=== PATIENT | female | born 1950 | race Two or more races ===

== ENCOUNTER 2016-11-04 01:08 | Emergency (ER) | payer OTHER, MEDICAID ==
[~2016-11-04] VITALS: Ht 152.4 cm; Wt 140.6 kg
[2016-11-04 01:41] LABS: Basophils # (auto) 0 uL; Basophils % (auto) 0.4 % (0.0-2.0); Eosinophils # (auto) 0.3 uL; Eosinophils % (auto) 5.5 % (0.0-7.0); Hematocrit 41.8 % (36.0-46.0); Lymphocytes # (auto) 2.1 uL; Lymphocytes % (auto) 33.6 % (10.0-50.0); Mean Corpuscular Hemoglobin 30.5 pg (28.0-32.0); Mean Corpuscular Hgb Conc. 33.5 g/dL (32.0-36.0); Mean Platelet Volume 10.7 fL (7.4-10.4); Monocytes # (auto) 0.5 uL; Monocytes % (auto) 7.9 % (0.0-12.0); Neutrophils # (auto) 3.2 uL; Neutrophils % (auto) 52.6 % (37.0-80.0); Platelet Count (auto) 265 10^3/uL (140-450); Red Cell Distribution Width 14.2 % (11.6-16.0); SUSPECT VIEW TRANSMISSION; White Blood Cell 6.2 10^3/uL (4.4-10.8)
[2016-11-04 01:57] LABS: INR 1.04 (0.9-1.15); Partial Thromboplastin Time 32.2 sec (22.64-33.71); Prothrombin Time 10.7 sec (9.37-12.3)
[2016-11-04 02:13] LABS: Albumin 3.6 g/dL (3.4-5.0); Amylase 35 U/L (25-115); Anion Gap 7 (5-15); Aspartate Aminotransferase 37 U/L (15-37); BUN/Creatinine Ratio 21.8; Blood Urea Nitrogen 17 mg/dL (7-18); Calcium 9.3 mg/dL (8.5-10.1); Carbon Dioxide 26 mmol/L (21-32); Chloride 105 mmol/L (98-107); GFR African American 95 mL/min; GFR Non-African American 78 mL/min; Glucose 126 mg/dL (74-106); Magnesium 2.2 mg/dL (1.6-2.6); Potassium 4.5 mmol/L (3.5-5.1); Sodium 138 mmol/L (136-145)
[2016-11-04 02:18] LABS: Alkaline Phosphatase 99 U/L (45-117); Bilirubin, Total 0.6 mg/dL (0.2-1.0); Total Protein 7.9 g/dL (6.4-8.2)
[2016-11-04 02:35] LABS: Urine RBC None Seen /hpf (0 - 4)
[2016-11-04 02:52] LABS: Urine Bilirubin Negative (Negative); Urine Blood Negative /uL (Negative); Urine Ca Oxalate Crystal FEW (None Seen); Urine Color Yellow (Yellow); Urine Glucose Normal (Normal); Urine Ketone Negative (Negative); Urine Nitrite Negative (Negative); Urine Squamous Epithelial Cell FEW /hpf (<5); Urine Urobilinogen Normal (Negative)
[2016-11-04] MEDS ORDERED: KETOROLAC TROMETH 30 MG/ML 1ML VIAL IV ONE (08:00)
[2016-11-04] MEDS ORDERED: METOCLOPRAMIDE HCL 5MG/ml INJ 2ml VIAL IV ONE (08:00)
[2016-11-04 10:32] VITALS: BP 135/55
== END 2016-11-04 10:52 | disposition home or self-care (01) ==
LOC: ER 01:08
DX: R10.12 Left upper quadrant pain (principal); K59.8 Other specified functional intestinal disorders; E66.01 Morbid (severe) obesity due to excess calories; Z68.44 Body mass index [BMI] 60.0-69.9, adult; E11.22 Type 2 diabetes mellitus with diabetic chronic kidney disease; I12.9 Hypertensive chronic kidney disease with stage 1 through stage 4 chronic kidney disease, or unspecified chronic kidney disease; N18.9 Chronic kidney disease, unspecified; E07.9 Disorder of thyroid, unspecified
CPT/HCPCS: 36415; 80053; 81001; 82150; 83690; 83735; 84484; 85025; 85610; 85730; 93005; 96374; 96375; 99285; J1885; J2765

== ENCOUNTER 2018-06-18 10:58 | Observation (INO) | payer OTHER, MEDICAID ==
[~2018-06-18] VITALS: Ht 152.4 cm; Wt 132.4 kg
[2018-06-18 11:29] LABS: Basophils # (auto) 0 uL; Basophils % (auto) 0.6 % (0.0-2.0); Eosinophils # (auto) 0.2 uL; Eosinophils % (auto) 2.6 % (0.0-7.0); Hematocrit 40.8 % (36.0-46.0); Hemoglobin 13.4 g/dL (12.2-16.2); Lymphocytes # (auto) 1.7 uL; Lymphocytes % (auto) 25.2 % (10.0-50.0); Mean Corpuscular Hemoglobin 28.3 pg (28.0-32.0); Mean Corpuscular Hgb Conc. 32.8 g/dL (32.0-36.0); Mean Corpuscular Volume 86.1 fL (80.0-100.0); Monocytes # (auto) 0.6 uL; Monocytes % (auto) 8.2 % (0.0-12.0); Neutrophils # (auto) 4.3 uL; Neutrophils % (auto) 63.4 % (37.0-80.0); Nucleated Red Blood Cells % 0.1 %; Platelet Count (auto) 244 10^3/uL (140-450); Red Blood Cells 4.74 10^6/uL (4.0-5.20); Red Cell Distribution Width 14.5 % (11.8-14.3); White Blood Cell 6.7 10^3/uL (4.4-10.8)
[2018-06-18 11:45] LABS: Albumin 3.9 g/dL (3.4-5.0); Calcium 10.1 mg/dL (8.5-10.1); Potassium 4.1 mmol/L (3.5-5.1)
[2018-06-18 11:48] LABS: BUN/Creatinine Ratio 25.4; Bilirubin, Total 0.6 mg/dL (0.2-1.0); Total Protein 8.5 g/dL (6.4-8.2)
[2018-06-18 11:53] LABS: Magnesium 2.2 mg/dL (1.6-2.6)
[2018-06-18 12:14] LABS: Urine Bacteria NONE SEEN /hpf (None Seen); Urine Blood Negative /uL (Negative); Urine Mucus FEW (None Seen); Urine Specific Gravity 1.023 (1.001-1.035); Urine WBC 1 /hpf (0 - 5)
[2018-06-18 13:46] LABS: INR 0.99 (0.9-1.15); Partial Thromboplastin Time 37.8 sec (23.78-33.04); Prothrombin Time 10.6 sec (9.27-12.13)
[2018-06-18] MEDS: cefTRIAXone 1GM/10ml IVPUSH 10 ML IV ONE (16:14)
[2018-06-18 17:51] VITALS: BP 171/92
== END 2018-06-18 17:52 | disposition home or self-care (01) | DRG 149 ==
LOC: ER 10:58 → OVERFLOW 10:59 → ER 17:51
PROVIDERS: ADMIT Family Medicine; ATTEND Family Medicine
DX: R42 Dizziness and giddiness (principal); N39.0 Urinary tract infection, site not specified; I10 Essential (primary) hypertension; E11.9 Type 2 diabetes mellitus without complications; E03.9 Hypothyroidism, unspecified; Z90.710 Acquired absence of both cervix and uterus
CPT/HCPCS: 36415; 71045; 80053; 81001; 83735; 84484; 85025; 85610; 85730; 93005; 96374; 99285; G0378; J0696

== ENCOUNTER 2019-09-05 15:41 | Emergency (ER) | payer OTHER, MEDICAID ==
[~2019-09-05] VITALS: Ht 152.4 cm; Wt 128.8 kg
[2019-09-05 17:57] LABS: Basophils # (auto) 0.1 uL; Basophils % (auto) 0.5 % (0.0-2.0); Eosinophils # (auto) 0.1 uL; Hematocrit 42.4 % (36.0-46.0); Hemoglobin 14.1 g/dL (12.2-16.2); Lymphocytes # (auto) 1.6 uL; Mean Corpuscular Hemoglobin 28.7 pg (28.0-32.0); Mean Corpuscular Hgb Conc. 33.2 g/dL (32.0-36.0); Mean Corpuscular Volume 86.4 fL (80.0-100.0); Monocytes # (auto) 0.9 uL; Monocytes % (auto) 8.9 % (0.0-12.0); Neutrophils # (auto) 7.8 uL; Neutrophils % (auto) 74.6 % (37.0-80.0); Platelet Count (auto) 270 10^3/uL (140-450); White Blood Cell 10.4 10^3/uL (4.4-10.8)
[2019-09-05 18:17] LABS: Albumin 3.8 g/dL (3.4-5.0); BUN/Creatinine Ratio 21.1; Calcium 10.5 mg/dL (8.5-10.1); Potassium 3.8 mmol/L (3.5-5.1)
[2019-09-05 18:20] LABS: Bilirubin, Total 0.8 mg/dL (0.2-1.0); Total Protein 8.6 g/dL (6.4-8.2)
[2019-09-05 19:25] VITALS: BP 188/83
== END 2019-09-05 19:26 | disposition home or self-care (01) ==
LOC: ER 15:48
DX: J02.8 Acute pharyngitis due to other specified organisms (principal); B96.89 Other specified bacterial agents as the cause of diseases classified elsewhere; E11.9 Type 2 diabetes mellitus without complications; I10 Essential (primary) hypertension; Z90.710 Acquired absence of both cervix and uterus
CPT/HCPCS: 36415; 71046; 80053; 83880; 85025

== ENCOUNTER 2020-06-15 14:53 | Emergency (ER) | payer OTHER, MEDICAID ==
[~2020-06-15] VITALS: Ht 152.4 cm; Wt 131.5 kg
[2020-06-15 15:00] VITALS: BP 190/86
[2020-06-15 15:44] LABS: Urine Bacteria FEW /hpf (None Seen); Urine Blood Negative /uL (Negative); Urine Specific Gravity 1.016 (1.001-1.035); Urine WBC 1 /hpf (0 - 5)
== END 2020-06-15 17:36 | disposition left against medical advice (07) ==
LOC: ER 14:53
DX: R03.0 Elevated blood-pressure reading, without diagnosis of hypertension (principal); Z53.21 Procedure and treatment not carried out due to patient leaving prior to being seen by health care provider
CPT/HCPCS: 81001; 93005

== ENCOUNTER 2021-12-04 08:11 | Inpatient (IN) | payer OTHER, MEDICAID ==
[~2021-12-04] VITALS: Ht 12.7 cm; Wt 134.3 kg
[2021-12-04 08:41] LABS: Basophils # (auto) 0.1 10 ^3/uL (0-0.2); Basophils % (auto) 0.8 % (0.0-2.0); Eosinophils # (auto) 0.2 10 ^3/uL (0-0.8); Eosinophils % (auto) 2.6 % (0.0-7.0); Hematocrit 41.3 % (36.0-46.0); Hemoglobin 13.9 g/dL (12.2-16.2); Lymphocytes # (auto) 1.6 10 ^3/uL (0.4-5.4); Mean Corpuscular Hemoglobin 30.4 pg (28.0-32.0); Mean Corpuscular Hgb Conc. 33.7 g/dL (32.0-36.0); Mean Corpuscular Volume 90.2 fL (80.0-100.0); Monocytes # (auto) 0.5 10 ^3/uL (0-1.3); Neutrophils # (auto) 4.3 10 ^3/uL (1.6-8.6); Neutrophils % (auto) 64.6 % (37.0-80.0); Nucleated Red Blood Cells % 0.1 %; Red Blood Cells 4.59 10^6/uL (4.0-5.20); Red Cell Distribution Width 14.5 % (11.8-14.3); White Blood Cell 6.6 10^3/uL (4.4-10.8)
[2021-12-04] MEDS ORDERED: hydrALAZINE HCL 20 MG/ML VL IV ONE (08:45)
[2021-12-04 09:51] LABS: Urine Bacteria NONE SEEN /hpf (None Seen); Urine Blood Negative /uL (Negative); Urine Mucus FEW (None Seen); Urine Specific Gravity 1.018 (1.001-1.035); Urine WBC 1 /hpf (0 - 5)
[2021-12-04] MEDS ORDERED: ONDANSETRON HCL 4 MG/2 ML VIAL IV ONE (10:15)
[2021-12-04] MEDS ORDERED: MORPHINE SULFATE 4 MG/ML SYR/VIAL IV ONE (10:15)
[2021-12-04] MEDS ORDERED: NITR-87 PO (11:33)
[2021-12-04 13:09] LABS: BUN/Creatinine Ratio 28.6; Bilirubin, Total 0.7 mg/dL (0.2-1.0); Calcium 9.7 mg/dL (8.5-10.1); Potassium 4.1 mmol/L (3.5-5.1); Total Protein 7.6 g/dL (6.4-8.2)
[2021-12-04 13:10] LABS: Albumin 3.7 g/dL (3.4-5.0)
[2021-12-04] MEDS ORDERED: MORPHINE SULFATE INJECTION 2 MG/ML SYRG IV PRN ×2 (15:15→16:00)
[2021-12-04] MEDS ORDERED: NITROGLYCERIN 0.4 MG SL TAB SL PRN (15:15)
[2021-12-04] MEDS ORDERED: IPRATROPIUM BROM 0.5 MG/2.5ML INH SOL NEB ONE (16:00)
[2021-12-04] MEDS ORDERED: BUDESONIDE (INHALATION) 0.5 MG/2 ML NEB NEB ONE (16:00)
[2021-12-04] MEDS ORDERED: MECLIZINE HCL 25 MG TAB PO PRN (16:00)
[2021-12-04] MEDS ORDERED: DOXYCYCLINE 100MG/250ML 250 ML IV ONE (16:00)
[2021-12-04] MEDS: DOXYCYCLINE 100MG/250ML 250 ML IV SCH (16:00)
[2021-12-04] MEDS ORDERED: ALBUTEROL SULF 2.5 MG/0.5ML(0.5%) NEB SOLN NEB ONE (16:00)
[2021-12-04] MEDS ORDERED: PROMETHAZINE-DM 5 ML ORAL SYRUP PO PRN (16:00)
[2021-12-04] MEDS ORDERED: DOCUSATE SOD 100 MG CAP PO PRN (16:00)
[2021-12-04] MEDS ORDERED: LORazepam 0.5 MG TAB PO PRN (16:00)
[2021-12-04] MEDS ORDERED: hydrALAZINE HCL 20 MG/ML VL IV PRN (16:00)
[2021-12-04] MEDS ORDERED: ONDANSETRON HCL 4 MG/2 ML VIAL IV PRN (16:00)
[2021-12-04] MEDS ORDERED: FAMOTIDINE (10MG/ML) 2ML VL IV ONE (16:00)
[2021-12-04] MEDS ORDERED: LACTULOSE 20Gm/30ML SOLN PO PRN (16:00)
[2021-12-04] MEDS ORDERED: MONTELUKAST SODIUM 10 MG TAB PO ONE (16:00)
[2021-12-04] MEDS ORDERED: DEXTROSE (50%) 50ML SYRG IV PRN (16:00)
[2021-12-04] MEDS ORDERED: ACETAMINOPHEN 325 MG TAB PO PRN (16:00)
[2021-12-04] MEDS ORDERED: HYDROcodone-ACET 5/325MG TAB PO ONE (16:00)
[2021-12-04] MEDS ORDERED: cefTRIAXone 1GM/50ML D5W 50 ML IV ONE (16:00)
[2021-12-04 16:20] LABS: Magnesium 1.9 mg/dL (1.6-2.6); Phosphorus 2.7 mg/dL (2.5-4.90)
[2021-12-04] MEDS: ACCU-CHEK COMFORT CURVE STRIP VI SCH ×2 (17:00→22:19)
[2021-12-04] MEDS: InsuLIN REG 1unit/0.01ml Soln (100units/ml) SC SCH ×2 (17:00→22:20)
[2021-12-04 17:20] LABS: INR 1.05 (0.9-1.15); Partial Thromboplastin Time 36.5 sec (23.6-33.0)
[2021-12-04 17:50] VITALS: BP 135/74
[2021-12-04] MEDS: FUROSEMIDE 20 MG/2 ML VIAL IV SCH (18:00)
[2021-12-04] MEDS: ACETYLCYSTEINE 10 %(100MG/ML) SOL 4ML NEB SCH (18:10)
[2021-12-04] MEDS: IPRATROPIUM BROM 0.5 MG/2.5ML INH SOL NEB SCH ×2 (18:11→21:55)
[2021-12-04] MEDS: ALBUTEROL SULF 2.5 MG/0.5ML(0.5%) NEB SOLN NEB PRN ×2 (18:11→21:54)
[2021-12-04] MEDS: BUDESONIDE (INHALATION) 0.5 MG/2 ML NEB NEB SCH (21:54)
[2021-12-04 22:00] VITALS: BP 141/61
[2021-12-04] MEDS ORDERED: MONTELUKAST SODIUM 10 MG TAB PO SCH (22:00)
[2021-12-04] MEDS ORDERED: ATORVASTATIN 20 MG TAB PO SCH (22:00)
[2021-12-05] VITALS (9 sets, daily range): BP systolic 104–185; BP diastolic 50–86
[2021-12-05] MEDS: IPRATROPIUM BROM 0.5 MG/2.5ML INH SOL NEB SCH ×4 (01:34→14:00)
[2021-12-05] MEDS: ALBUTEROL SULF 2.5 MG/0.5ML(0.5%) NEB SOLN NEB PRN ×3 (01:35→18:24)
[2021-12-05] MEDS: DOXYCYCLINE 100MG/250ML 250 ML IV SCH (04:29)
[2021-12-05] MEDS: HYDROcodone-ACET 5/325MG TAB PO PRN ×2 (04:38→10:25)
[2021-12-05] MEDS: ACCU-CHEK COMFORT CURVE STRIP VI SCH (06:31)
[2021-12-05] MEDS: FUROSEMIDE 20 MG/2 ML VIAL IV SCH (06:35)
[2021-12-05 06:39] LABS: Basophils # (auto) 0 10 ^3/uL (0-0.2); Basophils % (auto) 0.3 % (0.0-2.0); Eosinophils # (auto) 0.1 10 ^3/uL (0-0.8); Eosinophils % (auto) 1.4 % (0.0-7.0); Hematocrit 38.9 % (36.0-46.0); Hemoglobin 13.2 g/dL (12.2-16.2); Lymphocytes # (auto) 1.3 10 ^3/uL (0.4-5.4); Lymphocytes % (auto) 22.8 % (10.0-50.0); Mean Corpuscular Hemoglobin 30.7 pg (28.0-32.0); Mean Corpuscular Volume 90.3 fL (80.0-100.0); Monocytes # (auto) 0.4 10 ^3/uL (0-1.3); Monocytes % (auto) 7.3 % (0.0-12.0); Neutrophils # (auto) 3.8 10 ^3/uL (1.6-8.6); Neutrophils % (auto) 68.2 % (37.0-80.0); Nucleated Red Blood Cells % 0.1 %; Red Blood Cells 4.31 10^6/uL (4.0-5.20); Red Cell Distribution Width 14.9 % (11.8-14.3); White Blood Cell 5.5 10^3/uL (4.4-10.8)
[2021-12-05] MEDS: ACETYLCYSTEINE 10 %(100MG/ML) SOL 4ML NEB SCH ×4 (06:39→18:25)
[2021-12-05] MEDS: InsuLIN REG 1unit/0.01ml Soln (100units/ml) SC SCH ×2 (06:40→21:53)
[2021-12-05] MEDS: BUDESONIDE (INHALATION) 0.5 MG/2 ML NEB NEB SCH (06:40)
[2021-12-05 07:10] LABS: INR 1.06 (0.9-1.15); Partial Thromboplastin Time 34.7 sec (23.6-33.0)
[2021-12-05 07:19] LABS: Magnesium 2.2 mg/dL (1.6-2.6); Uric Acid 6.4 mg/dL (2.6-6.0)
[2021-12-05 07:32] LABS: Albumin 3.4 g/dL (3.4-5.0); BUN/Creatinine Ratio 23.9; Bilirubin, Total 0.6 mg/dL (0.2-1.0); CRP High Sensitivity 1.5 mg/dL (< 0.3); Calcium 9.8 mg/dL (8.5-10.1); Phosphorus 2.7 mg/dL (2.5-4.90)
[2021-12-05 08:30] LABS: Potassium 3.7 mmol/L (3.5-5.1)
[2021-12-05] MEDS: ENOXAPARIN SOD 40 MG/0.4 ML SYRINGE SC SCH (08:58)
[2021-12-05] MEDS: ASPirin 81 mg TAB PO SCH (08:59)
[2021-12-05] MEDS ORDERED: cefTRIAXone 1GM/50ML D5W 50 ML IV SCH (09:00)
[2021-12-05] MEDS: LOSARTAN POTASSIUM 50 MG TAB PO SCH (09:05)
[2021-12-05] MEDS: METOPROLOL SUCCINATE XL 50 MG TAB PO SCH (09:06)
[2021-12-05] MEDS ORDERED: FAMOTIDINE (10MG/ML) 2ML VL IV SCH (10:00)
[2021-12-05] MEDS ORDERED: CHOLECALCIFEROL (VITD3) 2,000 UNIT CAP/TAB PO SCH (10:00)
[2021-12-05] MEDS ORDERED: METO-158 PO (12:15)
[2021-12-05] MEDS ORDERED: ESOM20CA PO (12:15)
[2021-12-05] MEDS ORDERED: ASPI81CH74 PO (12:15)
[2021-12-05] MEDS ORDERED: ATOR20TA PO (12:15)
[2021-12-05] MEDS ORDERED: METF-370 PO (12:15)
[2021-12-05] MEDS ORDERED: TRAM50TA2 PO (12:15)
[2021-12-05] MEDS: IPRATROPIUM BROM 0.5 MG/2.5ML INH SOL NEB PRN (18:24)
[2021-12-06] MEDS: HYDROcodone-ACET 5/325MG TAB PO PRN (04:54)
[2021-12-06 05:00] VITALS: BP 155/73
[2021-12-06] MEDS: IPRATROPIUM BROM 0.5 MG/2.5ML INH SOL NEB PRN (07:02)
[2021-12-06] MEDS: ACETYLCYSTEINE 10 %(100MG/ML) SOL 4ML NEB SCH (07:03)
[2021-12-06] MEDS: ALBUTEROL SULF 2.5 MG/0.5ML(0.5%) NEB SOLN NEB PRN (07:03)
[2021-12-06 09:00] VITALS: BP 161/77
[2021-12-06] MEDS ORDERED: LOSA-39 PO (10:12)
[2021-12-06] MEDS ORDERED: FURO40TA4 PO (10:12)
[2021-12-06] MEDS ORDERED: FUROSEMIDE 40 MG/4 ML VIAL IV ONE (10:15)
[2021-12-06] MEDS: LOSARTAN POTASSIUM 50 MG TAB PO SCH (10:21)
[2021-12-06] MEDS: ASPirin 81 mg TAB PO SCH (10:21)
[2021-12-06] MEDS: METOPROLOL SUCCINATE XL 50 MG TAB PO SCH (10:22)
[2021-12-06] MEDS: ENOXAPARIN SOD 40 MG/0.4 ML SYRINGE SC SCH (10:22)
[2021-12-06 12:21] VITALS: BP 161/77
== END 2021-12-06 14:03 | disposition home health service (06) | DRG 204 ==
LOC: ER 08:11 → TELE 15:07 → TELE-CENTR 17:19
PROVIDERS: ADMIT Hospitalist; ATTEND Internal Medicine
DX: R06.02 Shortness of breath (principal); N39.0 Urinary tract infection, site not specified; Z68.45 Body mass index [BMI] 70 or greater, adult; I16.9 Hypertensive crisis, unspecified; E66.01 Morbid (severe) obesity due to excess calories; D49.7 Neoplasm of unspecified behavior of endocrine glands and other parts of nervous system; E78.5 Hyperlipidemia, unspecified; I27.9 Pulmonary heart disease, unspecified; I87.2 Venous insufficiency (chronic) (peripheral); K80.20 Calculus of gallbladder without cholecystitis without obstruction; Z20.822 Contact with and (suspected) exposure to COVID-19; M17.11 Unilateral primary osteoarthritis, right knee; R29.6 Repeated falls; M79.18 Myalgia, other site; E11.42 Type 2 diabetes mellitus with diabetic polyneuropathy; I83.93 Asymptomatic varicose veins of bilateral lower extremities; R59.9 Enlarged lymph nodes, unspecified; Z90.710 Acquired absence of both cervix and uterus; I10 Essential (primary) hypertension
CPT/HCPCS: 36415; 70450; 71250; 72192; 73562; 76536; 80053; 80061; 81001; 82550; 82728; 82962; 83036; 83615; 83690; 83735; 83880; 84100; 84443; 84484; 84550; 85025; 85379; 85610; 85652; 85730; 86141; 87040; 87086; 93005; 93306; 93886; 93970; 94640; 96365; 96375; 97110; 97116; 97163; 97530; G0378; J0696; J1815; J2405; J3490